=== PATIENT | male | born 1965 | race Caucasian/White ===

== ENCOUNTER 2023-11-06 08:30 | Inpatient (IN) | payer MEDICARE, SELFPAY ==
[2023-11-06] VITALS (7 sets, daily range): BP systolic 122–170; BP diastolic 81–98; TEMP 97.3–98.1; O2SAT 91–96
[~2023-11-06] VITALS: Ht 188 cm; Wt 71.5 kg
[~2023-11-06 08:30] MED LIST: BACL10TA2 OR; GABAPOW41 PO; OPANA; OPANA PO; SEROQUEL PO
[2023-11-06] MEDS ORDERED: ISOVUE-370 76% 100ML VIAL As Ordered ONE (10:14)
[2023-11-06] MEDS: ACETAMINOPHEN *IV* 1,000 MG in IV 1 EA IV ONE (10:47)
[2023-11-06] MEDS: NS 1,000 ML IV ONE (10:47)
[2023-11-06] MEDS: GASTROGRAFIN SOLUTION 30ML PO SCH (10:47)
[2023-11-06 11:01] LABS: BASO # 0.1 10^3/uL (0.0-0.2); BASO % 0.9 % (0.0-1.0); EOS # 0.1 10^3/uL (0.0-0.5); EOS % 1.2 % (0.0-3.0); HEMATOCRIT 50.7 % (42.0-52.0); HEMOGLOBIN 18.5 g/dl (13.5-17.5); LYMPH # 0.4 10^3/uL (1.5-5.0); LYMPH % 3.2 % (24.0-44.0); MEAN CORPUSCULAR HEMOGLOBIN 33.3 pg (27.0-33.0); MEAN CORPUSCULAR HGB CONC 36.5 g/dl (32.0-36.5); MEAN CORPUSCULAR VOLUME 91.4 fl (80.0-96.0); MONO # 0.9 10^3/uL (0.0-0.8); MONO % 8.1 % (2.0-8.0); NEUTROPHILS % 85.7 % (36.0-66.0); PLATELET COUNT, AUTOMATED 252 10^3/uL (150-450); RED BLOOD COUNT 5.55 10^6/uL (4.30-6.10); WHITE BLOOD COUNT 11.6 10^3/uL (4.0-10.0)
[2023-11-06 11:22] LABS: ALBUMIN 3.4 G/DL (3.2-5.2); BILIRUBIN,DIRECT 0.4 MG/DL (<0.4); BILIRUBIN,TOTAL 0.8 MG/DL (0.3-1.2); TOTAL PROTEIN 6.9 G/DL (5.7-8.2)
[2023-11-06] MEDS: PANTOPRAZOLE 40MG VIAL IV ONE (12:24)
[2023-11-06] MEDS: PIPERACILLIN/TAZOBACTAM SOD 3.375 GM in D5W MINI-BAG PLUS 50 ML IV ONE (13:03)
[2023-11-06] MEDS ORDERED: NORCO, ANEXSIA 5/325MG TABLET (HYDROcodone/ACETAMINOPHEN) PO PRN (14:00)
[2023-11-06] MEDS ORDERED: propofoL 200 MG/20 ML VIAL As Ordered ONE (14:00)
[2023-11-06] MEDS ORDERED: ONDANSETRON 4MG 2ML VIAL IV PRN (14:00)
[2023-11-06] MEDS ORDERED: ONDANSETRON 4MG 2ML VIAL As Ordered ONE (14:00)
[2023-11-06] MEDS ORDERED: LIDOCAINE 2% 100MG/5ML SDV (FOR ANES.) As Ordered ONE (14:00)
[2023-11-06] MEDS ORDERED: SUCCINYLCHOLINE 100MG/5ML SYRINGE As Ordered ONE (14:00)
[2023-11-06] MEDS ORDERED: MORPHINE 4 MG/ML 1ML VIAL IV PRN (14:00)
[2023-11-06] MEDS ORDERED: ROCURONIUM BROMIDE 50MG/5ML VIAL As Ordered ONE (14:00)
[2023-11-06] MEDS ORDERED: fentaNYL 100 MCG/2 ML INJECTION As Ordered ONE (14:01)
[2023-11-06] MEDS ORDERED: MIDAZOLAM INJ 2MG/2ML VIAL As Ordered ONE (14:01)
[2023-11-06] MEDS ORDERED: NAPR220C14 PO (14:07)
[2023-11-06] MEDS ORDERED: HOME MED LIST COMPLETE! XX SCH (14:10)
[2023-11-06] MEDS ORDERED: CALCIUM CHLORIDE 10% 1 GM/10 ML SYR As Ordered ONE (14:55)
[2023-11-06] MEDS ORDERED: PHENYLephrine 500MCG 5ML (100MCG/ML) SYRINGE As Ordered ONE (14:55)
[2023-11-06] MEDS ORDERED: SUGAMMADEX SODIUM 500 MG/5 ML VIAL (BRIDION) As Ordered ONE (15:10)
[2023-11-06] MEDS ORDERED: ACETAMINOPHEN 1000MG 100ML IV BAG As Ordered ONE (15:26)
[2023-11-06] MEDS ORDERED: dexmedeTOMIDine (4MCG/ML)200MCG/50ML BTL (PRECEDEX) As Ordered ONE (15:41)
[2023-11-06] MEDS: NS 1,000 ML IV SCH (17:22)
[2023-11-06] MEDS: SUCRALFATE SUSP 1GM/10ML UD PO SCH (18:06)
[2023-11-06] MEDS: PIPERACILLIN/TAZOBACTAM SOD 3.375 GM in D5W MINI-BAG PLUS 50 ML IV SCH (18:07)
[2023-11-06] MEDS: FLUCONAZOLE 400 MG in IV 1 EA IV ONE (19:21)
[2023-11-06] MEDS: SENOKOT S TAB PO SCH (19:26)
[2023-11-06] MEDS: KETOROLAC 30 MG/ML 1ML VIAL IV PRN (19:27)
[2023-11-07 02:16] VITALS: BP 131/78; TEMP 97.3; O2SAT 93
[2023-11-07 05:12] VITALS: BP 129/79; TEMP 98.4; O2SAT 93
[2023-11-07 06:45] LABS: MEAN CORPUSCULAR HEMOGLOBIN 32.5 pg (27.0-33.0); MEAN CORPUSCULAR HGB CONC 34.8 g/dl (32.0-36.5); MEAN CORPUSCULAR VOLUME 93.2 fl (80.0-96.0); PLATELET COUNT, AUTOMATED 212 10^3/uL (150-450); RED BLOOD COUNT 4.28 10^6/uL (4.30-6.10); WHITE BLOOD COUNT 12.2 10^3/uL (4.0-10.0)
[2023-11-07 07:05] LABS: HEMATOCRIT 39.9 % (42.0-52.0); HEMOGLOBIN 13.9 g/dl (13.5-17.5)
[2023-11-07 07:20] LABS: BLOOD UREA NITROGEN 20 MG/DL (9-23); CALCIUM LEVEL 8.6 MG/DL (8.5-10.1); CARBON DIOXIDE LEVEL 26 MMOL/L (20-31); CHLORIDE LEVEL 102 MMOL/L (98-107); CREATININE FOR GFR 0.91 MG/DL (0.70-1.30); GLOMERULAR FILTRATION RATE > 60.0 (>56); GLUCOSE, FASTING 88 MG/DL (60-100); MAGNESIUM LEVEL 1.9 MG/DL (1.8-2.4); POTASSIUM SERUM 5.2 MMOL/L (3.5-5.1); SODIUM LEVEL 133 MMOL/L (136-145)
[2023-11-07] MEDS: ENOXAPARIN 40MG/0.4ML SYRINGE (J1650 PER 10MG) SC SCH (09:18)
[2023-11-07 10:00] VITALS: BP 149/78; TEMP 98.1; O2SAT 90
[2023-11-07] MEDS: PANTOPRAZOLE 40MG VIAL IV SCH (12:18)
[2023-11-07 14:00] VITALS: BP 167/82; TEMP 98.2; O2SAT 94
[2023-11-07 20:13] VITALS: BP 155/88; TEMP 97.9; O2SAT 92
[2023-11-07] MEDS: FLUCONAZOLE 200 MG in IV 1 EA IV SCH (20:29)
[2023-11-08] VITALS (7 sets, daily range): BP systolic 129–156; BP diastolic 82–92; TEMP 97.3–97.9; O2SAT 82–95
[2023-11-08 06:37] LABS: HEMOGLOBIN 12.8 g/dl (13.5-17.5); MEAN CORPUSCULAR HEMOGLOBIN 33.8 pg (27.0-33.0); MEAN CORPUSCULAR HGB CONC 35.6 g/dl (32.0-36.5); PLATELET COUNT, AUTOMATED 198 10^3/uL (150-450); RED BLOOD COUNT 3.79 10^6/uL (4.30-6.10); WHITE BLOOD COUNT 9.7 10^3/uL (4.0-10.0)
[2023-11-08 07:00] LABS: BLOOD UREA NITROGEN 20 MG/DL (9-23); CALCIUM LEVEL 7.9 MG/DL (8.5-10.1); CARBON DIOXIDE LEVEL 21 MMOL/L (20-31); CHLORIDE LEVEL 102 MMOL/L (98-107); CREATININE FOR GFR 0.63 MG/DL (0.70-1.30); GLOMERULAR FILTRATION RATE > 60.0 (>56); GLUCOSE, FASTING 69 MG/DL (60-100); MAGNESIUM LEVEL 1.9 MG/DL (1.8-2.4); POTASSIUM SERUM 3.4 MMOL/L (3.5-5.1); SODIUM LEVEL 132 MMOL/L (136-145)
[2023-11-08] MEDS: NORCO, ANEXSIA 5/325MG TABLET (HYDROcodone/ACETAMINOPHEN) PO PRN (23:24)
[2023-11-09 05:31] VITALS: BP 176/98; TEMP 97.6; O2SAT 91
[2023-11-09 06:31] VITALS: BP 180/86
[2023-11-09] MEDS: amLODIPine 5 MG TAB PO ONE (06:40)
[2023-11-09 06:48] LABS: HEMATOCRIT 40.8 % (42.0-52.0); HEMOGLOBIN 14.4 g/dl (13.5-17.5); MEAN CORPUSCULAR HEMOGLOBIN 32.9 pg (27.0-33.0); MEAN CORPUSCULAR HGB CONC 35.3 g/dl (32.0-36.5); MEAN CORPUSCULAR VOLUME 93.2 fl (80.0-96.0); PLATELET COUNT, AUTOMATED 229 10^3/uL (150-450); RED BLOOD COUNT 4.38 10^6/uL (4.30-6.10); WHITE BLOOD COUNT 7.6 10^3/uL (4.0-10.0)
[2023-11-09 07:24] LABS: BLOOD UREA NITROGEN 9 MG/DL (9-23); CALCIUM LEVEL 7.8 MG/DL (8.5-10.1); CARBON DIOXIDE LEVEL 24 MMOL/L (20-31); CHLORIDE LEVEL 102 MMOL/L (98-107); CREATININE FOR GFR 0.57 MG/DL (0.70-1.30); GLOMERULAR FILTRATION RATE > 60.0 (>56); GLUCOSE, FASTING 86 MG/DL (60-100); MAGNESIUM LEVEL 1.7 MG/DL (1.8-2.4); POTASSIUM SERUM 3.2 MMOL/L (3.5-5.1); SODIUM LEVEL 135 MMOL/L (136-145)
[2023-11-09 07:42] VITALS: BP 160/96
[2023-11-09 14:00] VITALS: BP 140/91; TEMP 98.1; O2SAT 97
[2023-11-09 19:50] VITALS: BP 162/90; TEMP 98.2; O2SAT 97
[2023-11-10 04:55] VITALS: BP 184/90; TEMP 97.9; O2SAT 98
[2023-11-10 06:35] LABS: HEMATOCRIT 42.6 % (42.0-52.0); HEMOGLOBIN 15.3 g/dl (13.5-17.5); MEAN CORPUSCULAR HEMOGLOBIN 33.2 pg (27.0-33.0); MEAN CORPUSCULAR HGB CONC 35.9 g/dl (32.0-36.5); MEAN CORPUSCULAR VOLUME 92.4 fl (80.0-96.0); PLATELET COUNT, AUTOMATED 260 10^3/uL (150-450); RED BLOOD COUNT 4.61 10^6/uL (4.30-6.10); WHITE BLOOD COUNT 7.2 10^3/uL (4.0-10.0)
[2023-11-10] MEDS: amLODIPine 5 MG TAB PO ONE (06:56)
[2023-11-10 07:08] LABS: BLOOD UREA NITROGEN < 5 MG/DL (9-23); CARBON DIOXIDE LEVEL 30 MMOL/L (20-31); CHLORIDE LEVEL 97 MMOL/L (98-107); GLOMERULAR FILTRATION RATE > 60.0 (>56); GLUCOSE, FASTING 101 MG/DL (60-100); MAGNESIUM LEVEL 1.4 MG/DL (1.8-2.4); POTASSIUM SERUM 3.7 MMOL/L (3.5-5.1); SODIUM LEVEL 136 MMOL/L (136-145)
[2023-11-10 08:30] VITALS: BP 174/95
[2023-11-10] MEDS: MAGNESIUM OXIDE 400MG TAB (MAG-OX) PO ONE (08:36)
[2023-11-10] MEDS: OMEPRAZOLE 20MG CAP PO SCH (08:36)
[2023-11-10] MEDS ORDERED: HYDR-3715 PO (09:24)
[2023-11-10] MEDS ORDERED: OMEP-173 PO (09:27)
[2023-11-10] MEDS ORDERED: CARA1TAB6 PO (09:27)
== END 2023-11-10 11:57 | disposition home or self-care (01) | DRG 220 ==
LOC: M ED 08:30 → M SDC 13:49 → M RR INP 13:57 → M MSPAV 17:15
PROVIDERS: ADMIT Surgery; ATTEND Surgery
PROC: 0DU607Z Supplement Stomach with Autologous Tissue Substitute, Open Approach (ICD-10-PCS; principal; 2023-11-06 14:00)
DX: K25.5 Chronic or unspecified gastric ulcer with perforation (principal); K65.9 Peritonitis, unspecified; F17.200 Nicotine dependence, unspecified, uncomplicated